=== PATIENT | female | born 1975 | race Two or more races ===

== ENCOUNTER 2020-08-05 10:35 | Emergency (ER) | payer SELFPAY ==
[~2020-08-05] VITALS: Ht 167.6 cm; Wt 79.5 kg
[~2020-08-05 10:35] MED LIST: METR500T PO; ONDA4TAB10 SL
--- NOTE | 2020-08-05 10:59 | PHYS DOC ---
Past Medical History Past Medical History: Other Additional Past Medical Histor: PCOS Past Surgical History: Cholecystectomy, Smoking Status: Never Smoker Alcohol Use: None Drug Use: None General Adult EDM: Chief Complaint: MECHANICAL FALL HPI: HPI: Patient is a 45 year old female who presented to ER for evaluation of right- sided hip pain, right-sided sacrum pain and low back pain after she fell in the bathroom, hit her right hip and pelvic on the edge of the bathtub. Patient denies any head or neck injury, denies any upper extremity pain, denies any knee or leg pain. Patient denies any chest pain, no trouble breathing, no abdominal pain. Patient says she was in so much pain that she feels nauseous. Patient was able to walk in here from her car. Complained of pain when she walked. Review of Systems: Review of Systems: Constitutional: Denies fever or chills. [] Eyes: Denies change in visual acuity. [] HENT: Denies nasal congestion or sore throat. [] Respiratory: Denies cough or shortness of breath. [] Cardiovascular: Denies chest pain or edema. [] GI: Denies abdominal pain, nausea, vomiting, bloody stools or diarrhea. [] : Denies dysuria. [] Musculoskeletal: Positive for lower back pain, right-sided hip pain, right-sided sacrum and pelvic pain. Integument: Denies rash. [] Neurologic: Denies headache, focal weakness or sensory changes. [] Endocrine: Denies polyuria or polydipsia. [] Lymphatic: Denies swollen glands. [] Psychiatric: Denies depression or anxiety. [] Heart Score: C/O Chest Pain: N/A Risk Factors: Risk Factors: DM, Current or recent (<one month) smoker, HTN, HLP, family history of CAD, obesity. Risk Scores: Score 0 - 3: 2.5% MACE over next 6 weeks - Discharge Home Score 4 - 6: 20.3% MACE over next 6 weeks - Admit for Clinical Observation Score 7 - 10: 72.7% MACE over next 6 weeks - Early Invasive Strategies Current Medications: Current Medications Medications (Trade) Dose Ordered Sig/Ryan Start Time Stop Time Status Last Admin Dose Admin Morphine Sulfate (Morphine Sulfate) 4 mg 1X ONCE 08/05/20 11:00 08/05/20 11:01 UNV Ondansetron HCl (Zofran Odt) 4 mg 1X ONCE 08/05/20 11:00 08/05/20 11:01 UNV Allergies: Allergies: Allergies Coded Allergies Type Severity Reaction Last Updated Verified Penicillins Allergy Intermediate 02/28/16 No Physical Exam: PE: Constitutional: Well developed, well nourished, no acute distress, non-toxic appearance. [] HENT: Normocephalic, atraumatic, bilateral external ears normal, oropharynx moist, no oral exudates, nose normal. [] Eyes: PERRLA, EOMI, conjunctiva normal, no discharge. [] Neck: Normal range of motion, no tenderness, supple, no stridor. [] Cardiovascular:Heart rate regular rhythm, no murmur [] Lungs & Thorax: Bilateral breath sounds clear to auscultation [] Abdomen: Bowel sounds normal, soft, no tenderness, no masses, no pulsatile masses. [] Skin: Warm, dry, no erythema, no rash. [] Back: No tenderness, no CVA tenderness. [] Extremities: There is tenderness to palpation on the right hip area, right side pelvic area, no area of contusion noted. Patient able to walk. There was no midline lumbar vertebral tenderness to palpation. Bilateral rib cage did not show any crepitus, no contusion noted. Neurologic: Alert and oriented X 3, normal motor function, normal sensory function, no focal deficits noted. [] Psychologic: Affect normal, judgement normal, mood normal. [] EKG: EKG: [] Radiology/Procedures: Radiology/Procedures: [][facility] [address] [place], [place] [id number] IMAGING REPORT Signed PATIENT: SOURAV BERGERON ACCOUNT: [id number] : 1975 LOCATION: ER AGE: 45 SEX: F EXAM STATUS: REG ER ORD. PHYSICIAN: YOLA SIMS DO REASON: FELL RIGHT SIDE HIP PAIN PROCEDURE: HIP RIGHT 2V WITH PELVIS EXAM: AP pelvis, AP and lateral views right hip DATE: 08/05/2020 10:58 AM INDICATION: Reason: FELL RIGHT SIDE HIP PAIN / Spl. Instructions: / History: . COMPARISON: No Prior FINDINGS: No evidence of acute fracture or dislocation. Joint spaces are preserved without significant degenerative/proliferative change. No pubic symphysis or SI joint diastases. Moderate colonic stool content. IMPRESSION: No evidence of acute fracture or dislocation. Electronically signed by: Marcos Juarez MD (08/05/2020 12:15 PM) KATELYN DICTATED and SIGNED BY: MARCOS JUAREZ MD DATE: 08/05/[id number] [facility] [address] [place] [address] IMAGING REPORT Signed PATIENT: SOURAV BERGERON ACCOUNT: [id number] : 1975 LOCATION: ER AGE: 45 SEX: F EXAM STATUS: REG ER ORD. PHYSICIAN: YOLA SIMS DO REASON: FELL, LOWER BACK PAIN PROCEDURE: LUMBAR SPINE 2-3V EXAM: AP, lateral and lumbosacral spot views of the lumbar spine DATE: 08/05/2020 10:59 AM INDICATION: Reason: FELL, LOWER BACK PAIN / Spl. Instructions: / History: COMPARISON: No Prior FINDINGS: Vertebral body heights are preserved. Disc heights are preserved. No spondylolisthesis. No acute fracture. IMPRESSION: 1. Negative acute fracture or subluxation. Electronically signed by: Marcos Juarez MD (08/05/2020 12:22 PM) KATELYN DICTATED and SIGNED BY: MARCOS JUAREZ MD DATE: 08/05/[id number] [facility] [address] [place] [address] IMAGING REPORT Signed PATIENT: SOURAV BERGERON ACCOUNT: [id number] : 1975 LOCATION: ER AGE: 45 SEX: F EXAM STATUS: REG ER ORD. PHYSICIAN: YOLA SIMS DO REASON: FELL RIGHT SIDE LOWER RIB PAIN PROCEDURE: CHEST AP ONLY Single view chest dated 08/05/2020 12:16 PM: COMPARISON: None Clinical Indication: Pain after fall. Findings: Single supine portable exam performed. Heart and mediastinal contours within normal limits. Lungs are clear. No consolidation or pleural effusion. No pneumothorax. No apparent bony abnormality. IMPRESSION: No acute radiographic abnormality. Electronically signed by: Sim Delgadillo MD (08/05/2020 12:17 PM) [id number] DICTATED and SIGNED BY: SIM DELGADILLO MD DATE: 08/05/[id number] [facility] [address] [place] [address] IMAGING REPORT Signed PATIENT: SOURAV BERGERON ACCOUNT: [id number] : 1975 LOCATION: ER AGE: 45 SEX: F EXAM STATUS: REG ER ORD. PHYSICIAN: YOLA SIMS DO REASON: FELL, RIGHT SIDE SACRUM PAIN PROCEDURE: SACRUM & COCCYX 3V EXAM: Sacrum coccyx DATE: 08/05/2020 10:59 AM COMPARISON: No prior INDICATION: Pain s/p fall right sided cervical pain. FINDINGS: Dedicated AP and lateral views of the sacrum/coccyx are negative for acute or subacute fracture. Negative sacro-coccygeal dissociation. Negative SI joint diastasis or degenerative/proliferative changes. Grossly normal bone density. IMPRESSION: Normal dedicated views sacrum and coccyx. Electronically signed by: Marcos Juarez MD (08/05/2020 12:17 PM) [facility] DICTATED and SIGNED BY: MARCOS JUAREZ MD DATE: 08/05/20 [id number] Course & Med Decision Making: Course & Med Decision Making Pertinent Labs and Imaging studies reviewed. (See chart for details) Patient is a 45-year-old female who presented to ER for evaluation after she fell in her bathroom, landed on her right hip. X-ray of the hip, sacrum pelvis and lumbar spine did not show any acute problem. Patient was discharged home Kelly Disclaimer: Kelly Disclaimer: This electronic medical record was generated, in whole or in part, using a voice recognition dictation system. Departure Departure Impression: Primary Impression: Contusion of right hip Additional Impression: Contusion of pelvic region Disposition: 01 HOME / SELF CARE / HOMELESS Condition: STABLE Referrals: NO PCP (PCP) Follow up with your doctor as needed Patient Instructions: Hip Pointer (Iliac Crest Contusion)-[facility] Additional Instructions: Thank you for visiting our Emergency Department. We appreciate you trusting us with your care. If any additional problems come up don't hesitate to return to visit us. Please follow up with your primary care provider so they can plan additional care if needed and know about the problem that you had. If symptoms worsen come back to the Emergency Department. Any concerning symptoms that start such as chest pain, shortness of air, weakness or numbness on one side of the body, running high fevers or any other concerning symptoms return to the ER. Scripts Ondansetron Hcl (ZOFRAN) 4 Mg Tablet 1 TAB PO Q6HRS PRN for NAUSEA, #20 TAB Prov: YOLA SIMS DO 08/05/20 Tramadol Hcl (TRAMADOL HCL) 50 Mg Tablet 50 MG PO Q6HRS PRN for PAIN, #20 TAB Prov: YOLA SIMS DO 08/05/20 YOLA SIMS DO Aug 05, 2020 10:59
[2020-08-05] MEDS ORDERED: ONDANSETRON ODT 4 MG TAB.RAPDIS. PO ONE (11:00)
[2020-08-05] MEDS ORDERED: MORPHINE SULFATE 4 MG/ML VIAL. IM ONE (11:00)
--- NOTE | 2020-08-05 12:18 | RAD ---
EXAM: AP pelvis, AP and lateral views right hip DATE: 08/05/2020 10:58 AM INDICATION: Reason: FELL RIGHT SIDE HIP PAIN / Spl. Instructions: / History: . COMPARISON: No Prior FINDINGS: No evidence of acute fracture or dislocation. Joint spaces are preserved without significant degenera tive/proliferative change. No pubic symphysis or SI joint diastases. Moderate colonic stool content. IMPRESSION: No evidence of acute fracture or dislocation. Electronically signed by: Marcos Alanis MD (08/05/2020 12:15 PM) KATELYN
--- NOTE | 2020-08-05 12:19 | RAD ---
Single view chest dated 08/05/2020 12:16 PM: COMPARISON: None Clinical Indication: Pain after fall. Findings: Single supine portable exam performed. Heart and mediastinal contours within normal limits. Lungs are clear. No consolidation or pleural effusion. No pneumothorax. No apparent bony abnormality. IMPRESSION: No acute radiographic abnormality. Electronically signed by: Sim Delgadillo MD (08/05/2020 12:17 PM) [id number]
--- NOTE | 2020-08-05 12:19 | RAD ---
EXAM: Sacrum coccyx DATE: 08/05/2020 10:59 AM COMPARISON: No prior INDICATION: Pain s/p fall right sided cervical pain. FINDINGS: Dedicated AP and lateral views of the sacrum/coccyx are negative for acute or subacute fracture. Neg ative sacro-coccygeal dissociation. Negative SI joint diastasis or degenerative/proliferative changes . Grossly normal bone density. IMPRESSION: Normal dedicated views sacrum and coccyx. Electronically signed by: Marcos Alanis MD (08/05/2020 12:17 PM) KATELYN
--- NOTE | 2020-08-05 12:24 | RAD ---
EXAM: AP, lateral and lumbosacral spot views of the lumbar spine DATE: 08/05/2020 10:59 AM INDICATION: Reason: FELL, LOWER BACK PAIN / Spl. Instructions: / History: COMPARISON: No Prior FINDINGS: Vertebral body heights are preserved. Disc heights are preserved. No spondylolisthesis. No acute fra cture. IMPRESSION: 1. Negative acute fracture or subluxation. Electronically signed by: Marcos Alanis MD (08/05/2020 12:22 PM) KATELYN
[2020-08-05 12:56] VITALS: BP 131/73
[2020-08-05] MEDS ORDERED: ONDA4TAB7 PO (13:48)
[2020-08-05] MEDS ORDERED: TRAM50TA PO (13:48)
== END 2020-08-05 13:55 | disposition home or self-care (01) ==
LOC: ER 10:35
DX: S70.01XA Contusion of right hip, initial encounter (principal); S30.0XXA Contusion of lower back and pelvis, initial encounter; R07.89 Other chest pain; M53.3 Sacrococcygeal disorders, not elsewhere classified; Z90.49 Acquired absence of other specified parts of digestive tract; Z88.0 Allergy status to penicillin; W18.09XA Striking against other object with subsequent fall, initial encounter; Y93.89 Activity, other specified; Y92.89 Other specified places as the place of occurrence of the external cause; Y99.8 Other external cause status
CPT/HCPCS: 71045; 72100; 72220; 73502; 96372; 99284; J2270